=== PATIENT | male | born 1960 | race Caucasian/White ===

== ENCOUNTER 2019-05-15 06:29 | Day surgery (SDC) | payer BC ==
[2019-05-15] MEDS ORDERED: Lactated Ringers 1,000 ML IV SCH (06:30)
[2019-05-15] MEDS ORDERED: DIPRIVAN 200 MG/20 ML IV ONE ×2 (07:41→08:02)
[2019-05-15] MEDS ORDERED: Versed 2 MG/2 ML Injection ONE (07:42)
[2019-05-15 08:52] VITALS: O2SAT 96
[2019-05-15 09:14] VITALS: BP 143/78; PULSE 82
--- NOTE | 2019-05-15 12:50 | OP ---
SURGERY DATE/TIME: 05/15/2019 0759 PREOPERATIVE DIAGNOSIS: Screening exam. POSTOPERATIVE DIAGNOSIS: Normal colon except for radiation proctitis. PROCEDURE: Colonoscopy. SURGEON: Dr. Park. ANESTHESIA: MAC. Medications given by anesthesia department. HISTORY: The patient is a 58 year-old white male presenting now for his first screening colonoscopy. He was appraised of the risks of the procedure including the risk of perforation, phlebitis, untoward reaction to medication, bleeding and missed lesions. The patient verbalized his understanding and desired to have the procedure performed. DESCRIPTION OF PROCEDURE: The patient was given the medications by the anesthesia department. He had continuous pulse oximetry, ECG monitoring, intermittent blood pressure monitoring and tidal CO2 monitoring during the examination. He was placed in the left lateral decubitus position. A digital rectal examination was performed and revealed normal anal sphincter tone, no masses but with some abnormality of the prostate where he previously had seeds placed for radiation treatment. The flexible Olympus pediatric colonoscope was used to intubate the rectum. A view of the colon was developed sequentially to the cecum. Upon insertion and withdrawal there was noted to be some inflammation in the rectal area due to the radiation beads that had been previously implanted otherwise the colon was normal. The scope was removed from the patient who tolerated the procedure well and was sent back to OP recovery in good condition. The prep was noted to be marginal with some adherent stool noted throughout the right side of the colon.
== END 2019-05-15 09:17 | disposition home or self-care (01) ==
LOC: SDC 06:29
PROVIDERS: ATTEND Family Medicine
DX: Z12.11 Encounter for screening for malignant neoplasm of colon (principal); K62.7 Radiation proctitis
CPT/HCPCS: J2250; J2704